=== PATIENT | female | born 1945 | race Caucasian/White ===

== ENCOUNTER 2021-06-29 10:28 | Outpatient (CLI) | payer MEDICARE, OTHER ==
[~2021-06-29 10:28] MED LIST: CHOL500015 PO; CYAN500T18 PO; PANT40TA6 PO; RED1POWD2 PO; UBID400C6 PO
[2021-06-29 11:31] LABS: ALANINE AMINOTRANSFERASE 26 U/L (12-78); ALBUMIN 3.9 g/dL (3.4-5.0); ANION GAP 9 mmol/L (5-15); CALCIUM 9.4 mg/dL (8.5-10.1); CHLORIDE 107 mmol/L (98-107); CREATININE 0.76 mg/dL (0.55-1.02)
[2021-06-29 11:33] LABS: ALKALINE PHOSPHATASE 73 U/L (45-117); BILIRUBIN,TOTAL 0.5 mg/dL (0.2-1.0); TOTAL PROTEIN 7.7 g/dL (6.4-8.2)
[2021-06-29] MEDS ORDERED: ASCO100018 PO (11:51)
[2021-06-29] MEDS ORDERED: POTA20TA14 PO (11:51)
[2021-06-29] MEDS ORDERED: LISI-167 PO (11:51)
[2021-06-29] MEDS ORDERED: FURO-93 PO (11:51)
== END 2021-06-29 23:59 | disposition home or self-care (01) ==
LOC: STAR 10:28
PROVIDERS: ATTEND Surgery
DX: Z01.818 Encounter for other preprocedural examination (principal); Z20.822 Contact with and (suspected) exposure to COVID-19; R92.8 Other abnormal and inconclusive findings on diagnostic imaging of breast; R00.1 Bradycardia, unspecified; Z85.3 Personal history of malignant neoplasm of breast
CPT/HCPCS: 36415; 80053; 87635; 93005

== ENCOUNTER 2021-07-05 12:27 | Day surgery (SDC) | payer MEDICARE, OTHER ==
[~2021-07-05] VITALS: Ht 165.1 cm; Wt 78.8 kg
[~2021-07-05 12:27] MED LIST changes: +ASCO100018 PO; +FURO-93 PO; +LISI-167 PO; +POTA20TA14 PO
[2021-07-05 14:30] VITALS: BP 186/81
[2021-07-05] MEDS ORDERED: CHLORHEXIDINE 15 ML UDC ONE (14:37)
[2021-07-05] MEDS ORDERED: FENTANYL PF 250 MCG/5ML ONE (14:37)
[2021-07-05] MEDS ORDERED: BUPIVACAINE/PF 0.5% ONE (14:57)
[2021-07-05] MEDS ORDERED: EPINEPHRINE 1 MG/ML, 1ML ONE (14:57)
[2021-07-05] MEDS ORDERED: ACETAMINOPHEN 325 MG TABLET PO PRN (15:00)
[2021-07-05] MEDS ORDERED: LACTATED RINGERS 1,000 ML IV SCH (15:00)
[2021-07-05] MEDS ORDERED: HYDROmorphone 1 MG/ML, 1ML INJ IVPush PRN (15:00)
[2021-07-05] MEDS ORDERED: FENTANYL PF 100 MCG/2ML IV PRN (15:00)
[2021-07-05] MEDS ORDERED: HALOPERIDOL 5 MG/ML IV PRN (15:00)
[2021-07-05] MEDS ORDERED: LABETALOL 5MG/ML, 20ML IV PRN (15:00)
[2021-07-05] MEDS ORDERED: PROMETHAZINE 25 MG/ML, 1ML IVPush PRN (15:00)
[2021-07-05] MEDS ORDERED: morphine SULFATE 10 MG/ML, 1ML IVPush PRN (15:00)
[2021-07-05] MEDS ORDERED: hydrALAzine 20 MG/ML, 1ML IV PRN (15:00)
[2021-07-05] MEDS ORDERED: OXYcodone 5 MG/5 ML ORAL.SOL UDC PO PRN (15:00)
[2021-07-05] MEDS ORDERED: CLINDAMYCIN 150 MG/ML, 6ML ONE (15:09)
[2021-07-05] MEDS ORDERED: PROPOFOL 100 ML ONE (15:11)
[2021-07-05] MEDS ORDERED: LIDOCAINE 1%-EPI 1:100K, 20ML ONE (15:20)
[2021-07-05] MEDS ORDERED: SODIUM BICARBONATE 4.2%, 5ML ONE (15:20)
[2021-07-05] MEDS ORDERED: CHLORHEXIDINE 15 ML UDC PO ONE (15:30)
[2021-07-05] MEDS ORDERED: ACETAMINOPHEN 325 MG TABLET ONE (16:25)
[2021-07-05] MEDS ORDERED: ACETAMINOPHEN 650 MG/20.3 ML UDC ONE (16:25)
== END 2021-07-05 17:50 | disposition home or self-care (01) ==
LOC: CFH 12:27 → EDSTATUS 15:00 → RAD 17:50
PROVIDERS: ATTEND Surgery
DX: R92.8 Other abnormal and inconclusive findings on diagnostic imaging of breast (principal); N62 Hypertrophy of breast; Z79.899 Other long term (current) drug therapy; Z85.3 Personal history of malignant neoplasm of breast; Z88.8 Allergy status to other drugs, medicaments and biological substances; Z90.12 Acquired absence of left breast and nipple; Z82.49 Family history of ischemic heart disease and other diseases of the circulatory system
CPT/HCPCS: 19125; 19281; 76098; 88305; 88341; 88342; J0171; J2704; J3010; J7120